=== PATIENT | male | born 1960 | race Asian ===

== ENCOUNTER 2021-01-03 07:27 | Day surgery (SDC) | payer OTHER, SELFPAY ==
[~2021-01-03] VITALS: Ht 180.3 cm; Wt 68.0 kg
[2021-01-03] MEDS ORDERED: LIDOCAINE 2% 100 MG/5 ML UJET TP ONE (08:21)
[2021-01-03] MEDS ORDERED: diphenhydrAMINE 50 MG/ML VIAL ONE (08:21)
[2021-01-03] MEDS ORDERED: fentaNYL citrate 0.05 MG/ML VIAL ONE ×2 (08:21→08:40)
[2021-01-03] MEDS ORDERED: MIDAZOLAM 5 MG/5 ML VIAL ONE ×2 (08:21→08:40)
[2021-01-03] MEDS ORDERED: MIDAZOLAM 2 MG/2 ML VIAL IVP ONE (09:20)
[2021-01-03] MEDS ORDERED: fentaNYL citrate 0.05 MG/ML VIAL IVP ONE (09:20)
== END 2021-01-03 10:00 | disposition home or self-care (01) ==
LOC: MDS 07:27 → MMU 07:34 → MDS 10:00
PROVIDERS: ATTEND Internal Medicine Gastroenterology
DX: K92.1 Melena (principal); K57.30 Diverticulosis of large intestine without perforation or abscess without bleeding; I10 Essential (primary) hypertension; E78.5 Hyperlipidemia, unspecified; Z79.1 Long term (current) use of non-steroidal anti-inflammatories (NSAID); Z20.822 Contact with and (suspected) exposure to COVID-19; Z79.899 Other long term (current) drug therapy
CPT/HCPCS: 45378; 87426; J2250; J3010; J1200